=== PATIENT | male | born 1935 | race Caucasian/White ===

== ENCOUNTER 2016-10-12 11:27 | Emergency (ER) | payer OTHER ==
[~2016-10-12] VITALS: Ht 177.8 cm; Wt 72.6 kg
[2016-10-12] MEDS ORDERED: NORVASC5 MG PO (11:43)
[2016-10-12] MEDS ORDERED: OMEPRAZOLE20 M2 PO (11:44)
[2016-10-12] MEDS ORDERED: LISINOPRIL5 MG PO (11:44)
[2016-10-12] MEDS ORDERED: LEVOTHYROXIN0.025 MG PO (11:44)
[2016-10-12] MEDS ORDERED: POLY-IRON150 MG PO (11:44)
[2016-10-12] MEDS ORDERED: LOPERAMIDE 2 MG2 M1 PO (11:45)
[2016-10-12] MEDS ORDERED: APAP500 PO (11:45)
[2016-10-12 15:01] VITALS: BP 122/73
== END 2016-10-12 15:03 | disposition home or self-care (01) ==
LOC: ER 11:27
DX: S01.81XA Laceration without foreign body of other part of head, initial encounter (principal); S09.8XXA Other specified injuries of head, initial encounter; S60.512A Abrasion of left hand, initial encounter; W01.198A Fall on same level from slipping, tripping and stumbling with subsequent striking against other object, initial encounter; Y93.89 Activity, other specified; Y92.89 Other specified places as the place of occurrence of the external cause; Y99.8 Other external cause status

== ENCOUNTER 2017-07-07 14:50 | Emergency (ER) | payer OTHER ==
[~2017-07-07] VITALS: Ht 177.8 cm; Wt 68.0 kg
--- NOTE | ~2017-07-07 | EKG ---
[facility] [place] [address] ELECTROCARDIOGRAM REPORT Name: SEDRICK GARVEY [id number] Admission: 07/07/17 Attend Phys: Discharge: Date of : 35 Report #: [id number] THIS REPORT FOR: //name// [facility] ED Test Date: 2017-07-07 Test Time: 15:06:28 Pat Name: SEDRICK GARVEY Department: Room: Gender: Python Consultant: anna : 1935 Requested By: Heather uH Order Number: [id number] MD: Henok Barber Measurements Intervals [place] Rate: 69 P: FL: QRS: 20 QRSD: 80 T: 45 QT: 391 QTc: 419 Interpretive Statements Sinus rhythm with full FL interval Low voltage, extremity leads Compared to ECG 04/29/2017 12:28:29 No significant change was found Electronically Signed On 07-07-2017 17:20:53 SENIOR CORPORATE ACCOUNTANT by Henok Barber [email or web address] <ELECTRONICALLY SIGNED> By: Henok Barber MD, [facility] 07/07/17 1720 1506 1506 Henok Barber MD, FACC /EPI
[~2017-07-07 14:50] MED LIST: ACETAMINOPHEN500 M1 PO; APAP500 PO; LEVOTHYROXIN0.025 MG PO; LISINOPRIL5 MG PO; LOPERAMIDE 2 MG2 M1 PO; METAMUCIL1 EAC1 PO; NORVASC5 MG PO; OMEPRAZOLE20 M2 PO; POLY-IRON150 MG PO; TRAMADOL 50 MG50 MG PO; TUMS PO
[2017-07-07 15:19] LABS: ABSOLUTE NEUTROPHILS 6.5 thou/uL (1.4-8.2); BASOPHILS 0.8 % (0.0-2.0); EOSINOPHILS 0.7 % (0.0-3.0); HEMATOCRIT 34.5 % (42.0-52.0); HEMOGLOBIN 11.5 gm/dL (14.0-18.0); LYMPHOCYTES 16.1 % (24.0-44.0); MCH 29.3 pg (26.0-34.0); MCHC 33.3 g/dL (28.0-37.0); MCV 87.9 fL (80.0-100.0); MONOCYTES 7.9 % (1.0-8.0); PLATELET COUNT 364 thou/uL (150-400); POLYS 74.5 % (36.0-66.0); RBC 3.93 mil/uL (4.50-6.00); RDW 14.4 % (10.5-14.5); WBC 8.7 thou/uL (4.0-11.0)
[2017-07-07 15:26] LABS: ANION GAP 7 mmol/L (7-16); BUN 25 mg/dL (7-18); CALCIUM 8.5 mg/dL (8.5-10.1); CHLORIDE 104 mmol/L (98-107); CO2 27 mmol/L (21-32); CREATININE 1.4 mg/dL (0.7-1.3); GLUCOSE 90 mg/dL (74-106); POTASSIUM 4.3 mmol/L (3.5-5.1); SODIUM 138 mmol/L (136-145)
[2017-07-07 15:35] LABS: TROPONIN-I < 0.04 ng/mL (<0.06)
[2017-07-07] MEDS ORDERED: ULTRAM 50MG TAB50 MG PO (16:36)
[2017-07-07] MEDS ORDERED: LIDOCAINE1 EACH TRANSDERM (16:36)
[2017-07-07 17:39] VITALS: BP 125/71
[2018-01-19] MEDS ORDERED: LASIX 40 MG TAB40 M2 PO (13:09)
[2018-01-19] MEDS ORDERED: REMERON15 MG PO (13:11)
[2018-01-19] MEDS ORDERED: POTASSIUM20 PO (13:11)
[2018-01-23] MEDS ORDERED: K-DUR 20 MEQ T20 MEQ PO (13:04)
[2018-01-23] MEDS ORDERED: MILK OF MA2400 MG/10 PO (13:04)
[2018-01-30] MEDS ORDERED: SYNTHROID25 MC1 PO (18:12)
[2018-01-30] MEDS ORDERED: TYLENOL EXTRA500 MG PO (18:12)
[2018-01-30] MEDS ORDERED: REMERON15 MG PO (18:12)
[2018-01-30] MEDS ORDERED: IRON325 PO (18:12)
[2018-01-30] MEDS ORDERED: PROTONIX40 M1 PO (18:13)
[2018-02-01] MEDS ORDERED: AUGMENTIN 875-1 EACH PO (11:45)
== END 2017-07-07 17:30 ==
LOC: ER 14:50
PROVIDERS: Emergency Medicine
DX: S22.32XA Fracture of one rib, left side, initial encounter for closed fracture (principal); E03.9 Hypothyroidism, unspecified; I10 Essential (primary) hypertension; F03.90 Unspecified dementia, unspecified severity, without behavioral disturbance, psychotic disturbance, mood disturbance, and anxiety; W10.9XXA Fall (on) (from) unspecified stairs and steps, initial encounter; Y93.89 Activity, other specified; Y92.89 Other specified places as the place of occurrence of the external cause; Y99.8 Other external cause status

== ENCOUNTER 2018-02-20 12:40 | Inpatient (IN) | payer OTHER ==
[~2018-02-20] VITALS: Ht 177.8 cm; Wt 65.8 kg
--- NOTE | ~2018-02-20 | H ---
[facility] [place] [address] HISTORY AND PHYSICAL Name: SEDRICK GARVEY Joanne Room #: 419-P ADM IN M.R.#: [id number] Admission: 02/20/18 Attend Phys: Patrick Davison MD Discharge: Date of : 35 Report #: [id number] THIS REPORT FOR: //name// CC: Patrick Davison DATE OF SERVICE: 02/20/2018 CHIEF COMPLAINT: Abdominal pain. HISTORY OF PRESENT ILLNESS: The patient is an 82-year-old white male from [facility] who is very demented and is a completely unreliable historian. He told the staff that he had had 2 days of dark red stools. When I spoke with the patient's firm administrator at that facility, she only knew of him having generalized malaise and upon direct questioning, admitted that he was having abdominal pain today. At that point, because I would not be able to go and see him quickly, I decided he should be seen in the Emergency Room and evaluated quickly. ER evaluation suggested that on CT scan of the abdomen and pelvis, there was evidence of possible luminal narrowing and possible colitis in the rectosigmoid area. Given the patient's recent hospitalization for ischemic colitis, which was subsequently relieved with surgical adhesiolysis by Dr. Dee, and also subsequent to that, the patient developed oropharyngeal dysphagia and had right lower lobe pneumonia. It was felt that the patient is high risk for recurrent colitis with the possible cause being Clostridium difficile or other infection or ischemia. PAST MEDICAL HISTORY: In addition to the patient's recent hospitalization for ischemic colitis, he is also found to have gastroesophageal reflux disease with dysplastic changes on EGD. He has a history of prostate cancer. History of hypothyroidism, history of hypertension, history of dementia, history of blood loss anemia with iron deficiency, history of anxiety and depression. ALLERGIES: He has no known drug allergies. MEDICATIONS: He is on the following medications at [facility], ferrous sulfate, pantoprazole, acetaminophen, mirtazapine, levothyroxine and just recently finished a course of Augmentin 875/125. 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 He is a nonsmoker, nondrinker. In fact, he is quite gregarious and had to be moved from a second floor apartment down to the first floor at [facility] because of concerns for his safety after he climbed out on the ledge to inspect the roof. He has also had several falls in the last couple of years that occurred while he was out running for exercise. He had to be escorted to the Emergency Room by the police and then was eventually returned to [facility]. Recently, he has been at a residential care facility at [facility] and only came back to [facility] this very week on Friday. [address] [address] HISTORY AND PHYSICAL Name: SEDRICK GARVEY Joanne Room #: 419-P [facility] IN ..#: [id number] Admission: 02/20/18 Attend Phys: Patrick Davison MD Discharge: Date of : 35 Report #: [id number] It is noteworthy that he was on a thickened liquid diet and had a swallowing study recently and was still showing significant oropharyngeal dysphagia. REVIEW OF SYSTEMS: The patient denies any headaches or vision changes or difficulty swallowing. He denies any loss of hearing. He denies any recent trauma or falls. He denies any chest pain or shortness of breath. He denies back pain or neck pain. He denies any problems with bladder control. He does admit to having had some diarrhea recently. He does not admit to bleeding at this time, although he claimed that he had been bleeding for 2 days earlier when seen in the Emergency Room. He denies any abdominal pain at the time of my examination. He denies any problems with leg swelling or leg weakness or pain. PHYSICAL EXAMINATION: VITAL SIGNS: In the Emergency Room showed a pulse oximetry of 99% on room air with a respiratory rate of 16, pulse of 67, blood pressure 147/78 with a temperature of 36.6 degrees centigrade and a recorded weight of 145 pounds. GENERAL: The patient is a very aggressive personality octogenarian. SKIN: Shows that the patient has significant pallor today. He is usually quite pink and healthy looking prior to his last hospitalization. HEENT: Extraocular muscles are intact. The oropharynx is dry and pink. There are no lesions or exudates. Sinuses nontender. Hearing grossly normal. NECK: Without adenopathy or thyromegaly or mass or significant bruit. Skin is not supple. LUNGS: Fairly clear bilaterally. CARDIOVASCULAR: Reveals a regular rhythm without significant murmur, gallop or rub. ABDOMEN: Completely soft. Bowel sounds are present throughout. No visceromegaly or masses. EXTREMITIES: Without cyanosis or clubbing or peripheral edema. Peripheral pulses easily palpated in all 4 distal extremities. He moves them all with great ease and has excellent canal superintendent strength when shaking one hand. RECTAL: Exam was done in the Emergency Room that shows that the stool was heme positive. NEUROLOGIC: The patient is alert. He is oriented to person, but not place or time. No overt hallucinations or delusions. He is not agitated at the time of my visit and has not been during his stay in the Emergency Room or on transfer to the floor. He does have an IV in and telemetry monitoring on right now and appears to be comfortable with those interventions ongoing without pulling at them. LABORATORY DATA: On the admit labs, his white blood cell count was 7000, hemoglobin 9.4, hematocrit 27.7, MCV of 87.2 and normocytic, RDW 14.8, which is slightly elevated consistent with anemia and they are reactive nature of the bone marrow. The platelet count is 276,000 and normal also. His differential looks fairly normal. His urinalysis shows a specific gravity of greater than 1.030 with a concentrated urine. There was trace blood, but the rest of the [facility] [address] [place] [address] HISTORY AND PHYSICAL Name: MARELILIANALIN Room #: 419-P ADM IN [facility]#: [id number] Admission: 02/20/18 Attend Phys: Patrick Davison MD Discharge: Date of : 35 Report #: [id number] evaluation was otherwise completely negative. Occult blood testing of stool was positive. The chemistry showed a sodium of 142, potassium 3.7, chloride 107, bicarbonate of 27, BUN 15, creatinine 1.3. The anion gap was 8. The GFR was 53, estimated and the glucose was 105, nonfasting. Calcium level was 8.8 with a troponin of less than 0.06, and NT-proBNP was 207 and normal. An EKG was done in the Emergency Room that showed a sinus rhythm with PACs. No acute ischemic changes and essentially unchanged from one he had on 01/28/2018. Chest x-ray done in the Emergency Room shows an improved study as compared to his last one where he had the right lower lobe infiltrate towards the end of his last hospitalization last month. They did get a CT scan of his head without contrast in the ER and showed no acute abnormalities, only chronic age-related changes. After I discussed the matter with the ER staff, CT abdomen and pelvis was obtained and this impression is as follows, "CT studies of the abdomen and pelvis demonstrate mild thickening of the distal sigmoid colon and rectum. Consider distal colitis." No discrete tumors identified, but this could be a diagnosis of exclusion. These areas would be easy to reach if sigmoidoscopy is needed. Moderate sized hiatal hernia. ASSESSMENT AND PLAN: 1. Nonspecific generalized abdominal pain and diarrhea -- given the patient's recent hospital stay, several things certainly come to mind. Ischemic colitis with mild out of the realm of possibility, although the adhesions that cause this would appear to have been eliminated from last surgery. Another consideration is Clostridium difficile colitis because of his antibiotic treatments in recent weeks for his previous colitis and his pneumonia. It is my clinical impression that this patient I have known for the last couple of years is quite stoic and does not reveal discomfort reliably when asked about it. Part of this is also due to his underlying dementia. In any case, he certainly needs close observation for the next couple of days to make sure that he is not developing a more severe clinical situation. We will test his stools for Clostridium difficile and other enteric pathogens and start him on therapy for presumed C. diff and keep him on isolation. 2. Dehydration -- I suspect this explains the patient's pallor and concentrated urine on urinalysis. I think IV fluids will be quite appropriate in helping to elucidate his clinical problems. We will recheck hemoglobin and chemistry in the morning and check liver functions done as well. 3. Anemia, probably multifactorial due to iron deficiency and continuing inflammation. We will be reassessing tomorrow as above. 4. History of prostate cancer, stable. 5. Recent diagnosis of oropharyngeal dysphagia and recent episode of right lower lobe pneumonia. We will liberalize diet for now if he is doing well in that regard. We will consider speech therapy evaluation while he is in the hospital, especially if he shows any signs of continuing dysphagia issues. I [facility] [address] [place] [address] HISTORY AND PHYSICAL Name: SEDRICK GAREVY Room #: 419-P ADM IN M.R.#: [id number] Admission: 02/20/18 Attend Phys: Patrick Davison MD Discharge: Date of : 35 Report #: [id number] suspect that problem is/was temporary. 6. Hypertension. <ELECTRONICALLY SIGNED> By: Patrick Davison MD 02/22/18 0556 [id number] 53 Patrick Davison MD /nt
--- NOTE | ~2018-02-20 | HC ---
[facility] [place] [address] CONSULTATION Name: SEDRICK GARVEY Joanne Room #: 419-P [facility] IN ..#: [id number] Admission: 02/20/18 Attend Phys: Patrick Davison MD Discharge: Date of : 35 Report #: [id number] THIS REPORT FOR: //name// CC: Patrick Davison MD REASON FOR CONSULTATION: The patient is an 82-year-old male with rectal bleeding. HISTORY OF PRESENT ILLNESS: This patient is known to our service from consultation and evaluation in January of this year. At that time, he had abdominal pain and also evidence of blood in his stool with Hemoccult positive stool. He underwent surgery by Dr. Moisés Dee for lysis of adhesions related to small-bowel obstruction. He also had an upper endoscopy and he was found to have esophageal ulcers, which were thought to be the source of his bleeding. The patient unfortunately has a history of significant dementia and lives in a nursing facility. He was sent to the Emergency Room because he had dark red stool starting 2 days ago. From what I understand from nursing staff, he has not had any diarrhea. The patient is markedly demented and unable to provide any accurate information whatsoever. The patient has had laboratory studies, which include a hemoglobin of 9.2. It is noted that his hemoglobin in early January was 15.5 prior to his surgery. It looks like his hemoglobin was 8.6 just prior to his discharge. White count is 7.2, platelet count of 277,000. Electrolytes notable for potassium of 3.3, otherwise unremarkable. Calcium 7.9. Iron saturation is low. He has low iron of 18 and TIBC of low at 22. His ferritin is 48. Liver function studies are unremarkable. Albumin of 2.6. He did have a CT scan of the abdomen and pelvis, which reveals mild thickening of the distal sigmoid colon, there was a question of colitis. There is no evidence of small-bowel obstruction. He does have a large hiatus hernia, which has been noted. PAST MEDICAL HISTORY: Mostly obtained from review of the medical record. He has had previous colon surgery, looks like he has an ileocolonic anastomosis on CT. However, the purpose of that surgery is not clear. He has high blood pressure, dementia and hypothyroidism. He had a recent small-bowel obstruction secondary to adhesions. According Dr. Davison note, he had had previous ischemic colitis. He has also had trouble with anxiety and depression. ALLERGIES: According to his family doctors, there are no known drug allergies. CURRENT MEDICATIONS: At the nursing facility, he was on iron sulfate, pantoprazole, acetaminophen, mirtazapine, levothyroxine and recently finished a course of Augmentin 875/125. FAMILY HISTORY: Unknown. 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 Was a nonsmoker, nondrinker. Apparently, he restrains from his family, has not had contact with family for at least 6 months. REVIEW OF SYSTEMS: The patient is cooperative and pleasant, but denies any problems at this time. REVIEW OF SYSTEMS: Unreliable at this time. PHYSICAL EXAMINATION: GENERAL: The patient is a well-developed, well-nourished male in no acute distress. He is awake. He is alert, but he is not oriented to place or time. VITAL SIGNS: Blood pressure 136/77, pulse rate 65. HEENT: Anicteric. Pupils equal, round. Oropharynx clear. NECK: Supple. CHEST: Clear. HEART: Regular rate and rhythm, normal S1 and S2. ABDOMEN: Normal bowel sounds, soft, nontender, without hepatosplenomegaly or masses. RECTAL: Not done at this time. Stool reported Hemoccult positive for red bloody stools recently. EXTREMITIES: Without cyanosis, clubbing, or edema. NEUROLOGIC: He is not fully oriented. He moves all 4 extremities well. ASSESSMENT: 1. Rectal bleeding. 2. History of ischemic colitis. 3. History of prior colon surgery, reason unknown. 4. Recent small-bowel obstruction, status post surgery. 5. High blood pressure. 6. Advanced dementia. 7. Anemia. 8. History of prostate cancer. 9. Dysphagia. 10. Recent pneumonia. COMMENT: In addition to above, Dr. Davison reports in his note that the patient apparently had some diarrhea and abdominal pain recently. He has not had diarrhea here and he has no complaints of abdominal pain at this time. RECOMMENDATIONS: 1. Await stool for C. diff toxin, which has been requested. 2. Consider flexible sigmoidoscopy or colonoscopy to further evaluate his rectal bleeding and abnormalities noted on the CT with thickening of the distal colon and possibly some narrowing. It is noted this was not reported on CT [facility] [address] [place] [address] CONSULTATION Name: MARE,GILBERT O Room #: 419-P [facility] IN [facility].#: [id number] Admission: 02/20/18 Attend Phys: Patrick Davison MD Discharge: Date of : 35 Report #: [id number] scans done in January. We may be limited what we can do by the patient's cooperation in view of his significant dementia. He has benign abdomen at this time. He does not appear to be briskly bleeding at this time. <ELECTRONICALLY SIGNED> By: Natan Burgos MD 02/22/18 1425 1131 1701 Natan Burgos MD /nt
--- NOTE | ~2018-02-20 | P ---
[facility] [place] [address] PROCEDURE REPORT Name: SEDRICK GARVEY Joanne Room #: 419-P [facility] IN .R.#: [id number] Admission: 02/20/18 Attend Phys: Patrick Davison MD Discharge: Date of : 35 Report #: [id number] THIS REPORT FOR: //name// CC: Patrick Davison MD DATE OF SERVICE: 02/23/2018 PROCEDURE PERFORMED: Flexible sigmoidoscopy with biopsies. HISTORY OF PRESENT ILLNESS: The patient is an 82-year-old male who was admitted on 02/21/2018 for diarrhea, abdominal pain and rectal bleeding. CT scan of the abdomen and pelvis on admission shows a thickening in the distal colon, possibly some narrowing. The patient had a recent hospitalization for small-bowel obstruction, status post surgery as well as an upper GI bleed and at that time, large esophageal ulcers were noted. Recent CBC on February 20 with WBC of 7.2, hemoglobin 9.2 and platelet count is 277. The patient is demented and unable to give history or consent. Plan is for flexible sigmoidoscopy. DESCRIPTION OF PROCEDURE: The patient was performed under an emergent need as the patient is not able to give consent and there are no other family members available. Sedation was given using propofol per Anesthesia. Next, a digital rectal exam was initially performed, which was normal. Next, using a standard Olympus colonoscope, the scope was placed in the patient's anus and advanced under direct vision. I was able to advance the scope easily to the right colon, at which point, surgical anastomosis was noted. This was well healed and widely patent. There was a moderate amount of stool throughout the colon, but I was able to wash and aspirate most areas, were well visualized. The remaining transverse colon was normal. The descending colon was normal. In the distal sigmoid colon, a mild patchy colitis was noted. This was more prominent in the rectum and in the distal rectum, several small ulcerations consistent with [id number]-si-hdnyvymq colitis was noted in the distal rectum. Several biopsies were obtained. There was no evidence of bleeding. On retroflexion, no abnormalities other than small internal hemorrhoids were noted. No evidence of bleeding. At this point, the scope was then withdrawn and the procedure terminated. The patient tolerated the procedure well. IMPRESSION: Colitis noted in the distal sigmoid colon and rectum, mild in the distal sigmoid colon, somewhat more prominent in the rectum but no evidence of bleeding. Biopsies were obtained to rule out the possibility of Clostridium difficile as well as inflammatory bowel disease or other etiologies. A stool sample was also sent today for cultures and Clostridium difficile. RECOMMENDATIONS: Observe the patient at this time, there is no evidence of bleeding. Resume current diet and await for biopsies and stool studies. [address] [address] PROCEDURE REPORT Name: SEDRICK GARVEY Room #: 419-P [facility] IN M.R.#: [id number] Admission: 02/20/18 Attend Phys: Patrick Davison MD Discharge: Date of : 35 Report #: [id number] Thank you for allowing me to participate in his care. <ELECTRONICALLY SIGNED> By: Rickey Fountain MD 02/23/18 1229 1140 1153 Rickey Fountain MD /nt
--- NOTE | ~2018-02-20 | D ---
[facility] [place] [address] DISCHARGE SUMMARY Name: SEDRICK GARVEY Joanne Room #: 419-P [facility] IN M.R.#: [id number] Admission: 02/20/18 Attend Phys: Patrick Davison MD Discharge: 02/25/18 Date of : 35 Report #: [id number] THIS REPORT FOR: //name// CC: Rickey Davison [facility] DATE OF SERVICE: 02/25/2018 HOSPITAL COURSE: The patient is an 82-year-old male who presented with severe diarrhea and reports of bleeding. The only evidence of bleeding ever found was heme positive stool. No actual physical bleeding was ever visualized during this hospital stay or before. The patient, however, has moderately severe dementia and is a poor historian at best. His initial workup included CT of the abdomen and pelvis, which showed an area of wall thickening in the distal descending and rectosigmoid colon areas. GI consult was obtained with Dr. Natan Burgos and Dr. Rickey Fountain and ultimately, the patient underwent flexible sigmoidoscopy, which revealed areas of patchy colitis corresponding with the CT findings. There was no evidence of obstruction. The endoscopy went all the way back as far as the anastomotic site of his previous right hemicolectomy. There was no other evidence of pathology. The patient's hospital stay was remarkable in that he stopped having diarrhea when he arrived and stool studies eventually had to be obtained from the endoscopy specimen to test for C. diff as he was not having loose stools subsequently. The final results of stool cultures and such were pending at time of this dictation. During his last hospital stay just prior to this, the patient was also found to have significant oropharyngeal dysphagia and evidence of aspiration pneumonitis. It had resolved, but I think recurred again during this hospital stay as the patient would go from one day looking much better to the next day looking much worse without much time in between. In fact, corresponding to that one day that he began looked very bad, his white count suddenly jumped up to 17,000 again, but was back down around 9000 the next day, without antibiotics or any other significant intervention. The patient is aware that sometimes he has difficulties when he is swallowing and feels as though he aspirates or has to swallow several times to clear his throat. He is now on a soft mechanical diet with nectar thickened liquids and I did discuss the dietary change with the chapter relations administrator at his residential care facility, so that he can continue on it after he goes there. I also recommended and put orders in for speech as well as physical and occupational therapy to continue after discharge, so the patient can return to his usual level of function, otherwise. [address] [address] DISCHARGE SUMMARY Name: SEDRICK GARVEY Room #: 419-P [facility] IN M.R.#: [id number] Admission: 02/20/18 Attend Phys: Patrick Davison MD Discharge: 02/25/18 Date of : 35 Report #: [id number] DISCHARGE MEDICATIONS: As follows: Acetaminophen 500 mg p.o. q.4h. p.r.n. pain or temperature of 100, ferrous sulfate 325 mg by mouth p.o. b.i.d. with meals, levothyroxine 25 mcg p.o. daily, mirtazapine 15 mg p.o. nightly, pantoprazole 40 mg p.o. b.i.d.* Potassium chloride 20 mEq p.o. daily. * - the patient did have an upper endoscopy recently and this showed he had some reflux esophagitis and this area was biopsied and confirmed the diagnosis of Waddell's esophagus with some mild dysplastic changes noted. He will need to have followup evaluations of his distal esophagus every 2-3 years at least. He will need to continue on proton pump inhibitor therapy indefinitely. DISCHARGE DIAGNOSES: 1. Aspiration pneumonitis. 2. Nonspecific distal colitis with diarrhea and heme positive stools. 3. Waddell's esophagus. 4. Hypothyroidism. 5. Hypertension. 6. Mild depression. 7. Iron deficiency anemia. <ELECTRONICALLY SIGNED> By: Patrick Davison MD 02/26/18 1034 1441 1615 Patrick Davison MD /nt
--- NOTE | ~2018-02-20 | EKG ---
[address] [address] ELECTROCARDIOGRAM REPORT Name: SEDRICK GARVEY Room #: 419-P [facility] IN .R.#: [id number] Admission: 02/20/18 Attend Phys: Patrick Davison MD Discharge: 02/25/18 Date of : 35 Report #: [id number] THIS REPORT FOR: //name// [facility] ED Test Date: 2018-02-20 Test Time: 13:34:27 Pat Name: SEDRICK GARVEY Department: Room: [facility] Gender: M Argon [facility] 1935 Requested By: Hadley Aguilar Order Number: [id number] MD: Yon Maurer Measurements Intervals [place] Rate: 61 P: 41 VT: 193 QRS: -2 QRSD: 88 T: 24 QT: 412 QTc: 415 Interpretive Statements Sinus rhythm Atrial premature complexes Compared to ECG 01/28/2018 00:04:55 Atrial premature complex(es) now present Sinus tachycardia no longer present Electronically Signed On 02-27-2018 14:14:31 CDT by Yon Maurer [email or web address] <ELECTRONICALLY SIGNED> By: Yon Maurer MD 02/27/18 1414 1334 1334 Yon Maurer MD /EPI
--- NOTE | ~2018-02-20 | PATH ---
[facility] [address] [place] [address] PATHOLOGY RPT PROCEDURE Name: MARE,LILIANALIN Rubio Room #: 419-P ADM IN M.R.#: [id number] Admission: 02/20/18 Date of : 35 Discharge: Report #: [id number] Path Case #: [id number] [facility] Accession Number: [id number] . 01 Material submitted: . BX OF RECTUM . 01 Clinical history: . GI bleed, diarrhea Rule out colitis, rectal colitis . 02 Diagnosis: Large intestinal mucosa, rectum rule out colitis, endoscopic biopsy: - Ulceration, reactive crypts and features of active proctitis (please see comment). [facility]/02/25/2018 . 02 Comment: Examination shows a markedly cellular lamina propria along with ulceration, acute cryptitis, reactive as well as hyperplastic crypts in addition to subtle architectural abnormalities. Overall findings are suggestive of active colitis within the rectum. The differential diagnosis for this includes active inflammatory bowel disease, solitary rectal ulcer, ischemic changes, mucosal prolapse syndrome as well as acute diverticulitis in addition to medication induced proctitis. There is no dysplasia or malignancy present. Please correlate clinically. (IUV:pit 02/25/2018) . 02 Electronically signed: . Brittney Logan MD, Pathologist NPI- [id number] . 01 Gross description: . The specimen is received in formalin, labeled "Sedrick Garvey, BX rectum rule out colitis" and consists of 5 fragments of soft lam tissue measuring 1.1 x 0.6 x 0.2 cm in aggregate which are entirely submitted in A1. (SDY; 02/23/2018) SYU/SYU . 02 Pathologist provided ICD-10: K62.89, K62.6 . 02 CPT . 140838 Specimen Comment: A courtesy copy of this report has been sent to Specimen Comment: [phone], . Specimen Comment: Report sent to / [place] [address] PATHOLOGY RPT PROCEDURE Name: SEDRICK GARVEY O Room #: 419-P [facility] IN [facility].#: [id number] Admission: 02/20/18 Date of : 35 Discharge: Report #: [id number] Path Case #: [id number] Performed at: 01 [facility] Demetris Musa [address] [facility] [address], [place] [id number] MD Tomas Peterson MD Phone: [phone] Performed at: [address] [id number] MD Brittney Logan MD Phone: [phone]
[~2018-02-20 12:40] MED LIST changes: +AUGMENTIN 875-1 EACH PO; +IRON325 PO; +K-DUR 20 MEQ T20 MEQ PO; +LASIX 40 MG TAB40 M2 PO; +LIDOCAINE1 EACH TRANSDERM; +MILK OF MA2400 MG/10 PO; +POTASSIUM20 PO; +PROTONIX40 M1 PO; +REMERON15 MG PO; +SYNTHROID25 MC1 PO; +TYLENOL EXTRA500 MG PO; +ULTRAM 50MG TAB50 MG PO
[2018-02-20 12:41] VITALS: BP 141/78
[2018-02-20 13:39] LABS: ABSOLUTE NEUTROPHILS 4.5 thou/uL (1.4-8.2); BASOPHILS 0.7 % (0.0-2.0); EOSINOPHILS 1.1 % (0.0-3.0); HEMATOCRIT 27.7 % (42.0-52.0); HEMOGLOBIN 9.4 gm/dL (14.0-18.0); LYMPHOCYTES 22.5 % (24.0-44.0); MCH 29.5 pg (26.0-34.0); MCHC 33.9 g/dL (28.0-37.0); MCV 87.2 fL (80.0-100.0); MONOCYTES 11.3 % (1.0-8.0); PLATELET COUNT 276 thou/uL (150-400); POLYS 64.4 % (36.0-66.0); RBC 3.18 mil/uL (4.50-6.00); RDW 14.8 % (10.5-14.5)
[2018-02-20 13:51] LABS: ANION GAP 8 mmol/L (7-16); BUN 15 mg/dL (7-18); CALCIUM 8.8 mg/dL (8.5-10.1); CHLORIDE 107 mmol/L (98-107); CO2 27 mmol/L (21-32); CREATININE 1.3 mg/dL (0.7-1.3); GLUCOSE 105 mg/dL (74-106); POTASSIUM 3.7 mmol/L (3.5-5.1); SODIUM 142 mmol/L (136-145)
[2018-02-20 14:00] LABS: TROPONIN-I <0.06 ng/mL (<0.06)
[2018-02-20 14:10] LABS: URINE BILIRUBIN NEGATIVE (Negative); URINE BLOOD TRACE (Negative); URINE CLARITY CLEAR; URINE COLOR YELLOW; URINE GLUCOSE-RANDOM* NEGATIVE (Negative); URINE KETONES NEGATIVE (Negative); URINE LEUKOCYTES NEGATIVE (Negative); URINE NITRITE NEGATIVE (Negative); URINE PROTEIN (DIPSTICK) NEGATIVE (Negative); URINE SPECIFIC GRAVITY >= 1.030 (1.005-1.035); URINE UROBILINOGEN 0.2 E.U./dl (0.2-1.0)
[2018-02-20 16:17] VITALS: BP 137/63
[2018-02-20 17:03] VITALS: BP 137/63
[2018-02-20 19:21] VITALS: BP 139/68
[2018-02-20 20:30] LABS: HEMATOCRIT 27.4 % (42.0-52.0); HEMOGLOBIN 9.2 gm/dL (14.0-18.0); MCH 29.5 pg (26.0-34.0); MCHC 33.6 g/dL (28.0-37.0); MCV 87.7 fL (80.0-100.0); RBC 3.13 mil/uL (4.50-6.00); RDW 15.3 % (10.5-14.5); WBC 7.2 thou/uL (4.0-11.0)
[2018-02-20 20:43] LABS: ALBUMIN 2.6 g/dL (3.4-5.0); CALCIUM 7.9 mg/dL (8.5-10.1); CREATININE 1.1 mg/dL (0.7-1.3); POTASSIUM 3.3 mmol/L (3.5-5.1); TOTAL BILIRUBIN 0.4 mg/dL (<0.1-1.0); TOTAL PROTEIN 6.1 g/dL (6.4-8.2)
[2018-02-21 05:30] VITALS: BP 136/77
[2018-02-21 06:32] LABS: OBSERVED RETIC COUNT 1.18 % (0.6-2.6)
[2018-02-21 06:47] LABS: % SATURATION 8 % (20-39); IRON 18 ug/dL (65-175); TIBC 222 ug/dL (250-450)
[2018-02-21 19:27] VITALS: BP 157/75
[2018-02-22 06:33] LABS: CALCIUM 8.7 mg/dL (8.5-10.1); CREATININE 1.1 mg/dL (0.7-1.3); MAGNESIUM 1.8 mg/dL (1.8-2.4); POTASSIUM 3.9 mmol/L (3.5-5.1)
[2018-02-22 07:20] VITALS: BP 164/83
[2018-02-22 19:17] VITALS: BP 155/78
[2018-02-23 04:31] VITALS: BP 149/87
[2018-02-23 19:23] VITALS: BP 113/69
[2018-02-24 04:12] VITALS: BP 135/74
[2018-02-24 06:29] LABS: HEMATOCRIT 30.8 % (42.0-52.0); MCH 28.7 pg (26.0-34.0); MCHC 32.6 g/dL (28.0-37.0); RBC 3.5 mil/uL (4.50-6.00); RDW 15.1 % (10.5-14.5); WBC 17.6 thou/uL (4.0-11.0)
[2018-02-24 06:45] LABS: ALBUMIN 2.8 g/dL (3.4-5.0); CALCIUM 8.7 mg/dL (8.5-10.1); CREATININE 1.3 mg/dL (0.7-1.3); POTASSIUM 4.4 mmol/L (3.5-5.1)
[2018-02-24 06:56] LABS: URINE BILIRUBIN NEGATIVE (Negative); URINE BLOOD 1+ (Negative); URINE CLARITY CLEAR; URINE COLOR YELLOW; URINE GLUCOSE-RANDOM* NEGATIVE (Negative); URINE KETONES NEGATIVE (Negative); URINE LEUKOCYTES-REFLEX NEGATIVE (Negative); URINE NITRITE-REFLEX NEGATIVE (Negative); URINE PROTEIN (DIPSTICK) NEGATIVE (Negative); URINE SPECIFIC GRAVITY 1.015 (1.005-1.035); URINE UROBILINOGEN 0.2 E.U./dl (0.2-1.0)
[2018-02-24 07:04] LABS: CASTS None Seen /LPF (None Seen); CRYSTALS None Seen /LPF (None Seen); SQUAMOUS None Seen /LPF (0-3); URINE RBC 3-10 Few /HPF (0-2); URINE WBC-REFLEX 0-5 Rare /HPF (0-5)
[2018-02-24 07:05] LABS: BACTERIA-REFLEX 1-9 Few /HPF (None Seen)
[2018-02-24 07:20] VITALS: BP 132/68
[2018-02-24 15:50] VITALS: BP 120/73
[2018-02-24 19:50] VITALS: BP 114/56
[2018-02-25 03:30] VITALS: BP 141/73
[2018-02-25 06:25] LABS: ABSOLUTE NEUTROPHILS 6.5 thou/uL (1.4-8.2); BASOPHILS 0.8 % (0.0-2.0); EOSINOPHILS 1.7 % (0.0-3.0); HEMATOCRIT 30.1 % (42.0-52.0); HEMOGLOBIN 10.1 gm/dL (14.0-18.0); LYMPHOCYTES 16.9 % (24.0-44.0); MCH 29.2 pg (26.0-34.0); MCHC 33.4 g/dL (28.0-37.0); MCV 87.3 fL (80.0-100.0); MONOCYTES 11.8 % (1.0-8.0); PLATELET COUNT 267 thou/uL (150-400); POLYS 68.8 % (36.0-66.0); RBC 3.45 mil/uL (4.50-6.00); RDW 14.7 % (10.5-14.5); WBC 9.4 thou/uL (4.0-11.0)
[2018-02-25 06:50] LABS: CREATININE 1.4 mg/dL (0.7-1.3); POTASSIUM 4.7 mmol/L (3.5-5.1)
[2018-02-25 07:15] VITALS: BP 154/90
[2018-02-25] MEDS ORDERED: K-DUR 20 MEQ T20 MEQ PO (14:08)
[2018-02-25] MEDS ORDERED: REMERON15 MG PO (14:08)
[2018-02-25] MEDS ORDERED: ONDANSETRON HCL4 M1 PO (14:09)
[2018-02-25 14:47] VITALS: BP 154/90
[2018-02-25 14:49] VITALS: BP 154/90
[2018-02-25 15:02] VITALS: BP 143/82
== END 2018-02-25 15:16 | disposition home health service (06) | DRG 377 ==
LOC: ER 12:40 → EROBS 15:58 → 4E 15:58
PROVIDERS: Internal Medicine; Nurse Practitioner
PROC: 0DBP8ZX Excision of Rectum, Via Natural or Artificial Opening Endoscopic, Diagnostic (ICD-10-PCS; principal; 2018-02-23)
DX: K62.5 Hemorrhage of anus and rectum (principal); J69.0 Pneumonitis due to inhalation of food and vomit; E46 Unspecified protein-calorie malnutrition; E44.0 Moderate protein-calorie malnutrition; K52.9 Noninfective gastroenteritis and colitis, unspecified; K22.70 Barrett's esophagus without dysplasia; E03.9 Hypothyroidism, unspecified; I10 Essential (primary) hypertension; F03.90 Unspecified dementia, unspecified severity, without behavioral disturbance, psychotic disturbance, mood disturbance, and anxiety; F41.9 Anxiety disorder, unspecified; F32.9 Major depressive disorder, single episode, unspecified; R13.10 Dysphagia, unspecified; D50.9 Iron deficiency anemia, unspecified; K21.9 Gastro-esophageal reflux disease without esophagitis; E86.0 Dehydration; E87.6 Hypokalemia; Z85.46 Personal history of malignant neoplasm of prostate; Z68.20 Body mass index [BMI] 20.0-20.9, adult; Z79.899 Other long term (current) drug therapy
CPT/HCPCS: 10084; 62110; 62900; 70005

== ENCOUNTER 2018-08-28 09:00 | Emergency (ER) | payer OTHER ==
[~2018-08-28] VITALS: Ht 185.4 cm; Wt 79.4 kg
[~2018-08-28 09:00] MED LIST changes: +ONDANSETRON HCL4 M1 PO
[2018-08-28] MEDS ORDERED: AMLODIPINE-OLM1 EAC2 PO (09:15)
[2018-08-28 09:43] LABS: HEMATOCRIT 37.3 % (42.0-52.0); HEMOGLOBIN 12.7 gm/dL (14.0-18.0); MCH 30.2 pg (26.0-34.0); MCV 88.8 fL (80.0-100.0); PLATELET COUNT 232 thou/uL (150-400); WBC 9.1 thou/uL (4.0-11.0)
[2018-08-28 09:53] LABS: CREATININE 1.4 mg/dL (0.7-1.3)
[2018-08-28 09:59] LABS: ALBUMIN 3.3 g/dL (3.4-5.0); TOTAL BILIRUBIN 0.3 mg/dL (<0.1-1.0); TOTAL PROTEIN 7.2 g/dL (6.4-8.2)
[2018-08-28 10:03] LABS: URINE BILIRUBIN NEGATIVE (Negative); URINE BLOOD 2+ (Negative); URINE CLARITY CLEAR; URINE COLOR YELLOW; URINE GLUCOSE-RANDOM* NEGATIVE (Negative); URINE KETONES NEGATIVE (Negative); URINE LEUKOCYTES-REFLEX NEGATIVE (Negative); URINE NITRITE-REFLEX NEGATIVE (Negative); URINE PROTEIN (DIPSTICK) NEGATIVE (Negative); URINE SPECIFIC GRAVITY >= 1.030 (1.005-1.035); URINE UROBILINOGEN 0.2 E.U./dl (0.2-1.0)
[2018-08-28 10:13] LABS: CASTS None Seen /LPF (None Seen); MUCUS 0-3 Light strn/LPF (None Seen); SQUAMOUS 0-3 Few /LPF (0-3)
[2018-08-28 10:14] LABS: BACTERIA-REFLEX None Seen /HPF (None Seen); CRYSTALS None Seen /LPF (None Seen); URINE RBC 0-2 Rare /HPF (0-2); URINE WBC-REFLEX 0-5 Rare /HPF (0-5)
[2018-08-28] MEDS ORDERED: OSELB75 PO (10:22)
[2018-08-28 11:02] VITALS: BP 109/56
[2018-08-28 11:12] LABS: ABSOLUTE NEUTROPHILS 7.5 thou/uL (1.4-8.2); ANISOCYTOSIS SLIGHT; ATYPICAL LYMPHS 1 %; LARGE PLATELETS OCCASIONAL; OVALOCYTES OCCASIONAL; POIKILOCYTOSIS SLIGHT
[2018-08-29] MEDS ORDERED: ACETAMINOPHEN325 M1 PO (09:31)
== END 2018-08-28 11:04 | disposition home or self-care (01) ==
LOC: ER 09:00
PROVIDERS: Emergency Medicine
DX: J10.1 Influenza due to other identified influenza virus with other respiratory manifestations (principal); F03.90 Unspecified dementia, unspecified severity, without behavioral disturbance, psychotic disturbance, mood disturbance, and anxiety; I10 Essential (primary) hypertension; E03.9 Hypothyroidism, unspecified

== ENCOUNTER 2018-08-28 21:35 | Inpatient (IN) | payer OTHER ==
[~2018-08-28] VITALS: Ht 182.9 cm; Wt 70.8 kg
[~2018-08-28 21:35] MED LIST changes: +AMLODIPINE-OLM1 EAC2 PO; +OSELB75 PO
[2018-08-28 21:37] VITALS: BP 146/74
[2018-08-28 22:29] VITALS: BP 146/74
[2018-08-28 22:56] VITALS: BP 122/60
[2018-08-28 23:20] VITALS: BP 129/62
--- NOTE | 2018-08-28 23:39 | NUR ---
BLOOD AND CULTURES DRAWN AT EARLIER VISIT
--- NOTE | 2018-08-29 02:06 | NUR ---
PT ARRIVED AT 2320 PT ORIENTATED TO ROOM AND CALL LIGHT PT DID NOT TRY TO GET UP UNASSISTED PT CONFUSED AND NOT ABLE TO PROVIDE MUCH INFO FOR HEALTH ASSESMENT.
[2018-08-29 04:03] VITALS: BP 125/64
[2018-08-29 07:34] VITALS: BP 134/82
[2018-08-29] MEDS ORDERED: ACETAMINOPHEN325 M1 PO (09:31)
[2018-08-29 10:15] VITALS: BP 134/82
--- NOTE | 2018-08-29 12:10 | NUR ---
pt stable throughout shift. pt discharged back to [facility]. attempted to call report, however facility ([facility]) requested I "just send it with patient". pt left unit via wheelchair van.
--- NOTE | 2018-08-31 20:05 | D ---
[facility] [place] [address] DISCHARGE SUMMARY Name: SEDRICK GARVEY Joanne Room #: 463-P [facility] IN .R.#: [id number] Admission: 08/28/18 ������������������ Attend Phys: Patrick Davison MD Discharge: 08/29/18 ������������������ Date of : 35 Report #: [id number] THIS REPORT FOR: //name// CC: Patrick Davison [facility] DATE OF SERVICE: 08/29/2018 SHORT STAY SUMMARY HOSPITAL COURSE: The patient is an 82-year-old male who resides at [facility] and was brought to the Emergency Room early in the day on 08/28/2018 after having an episode of weakness. He was diagnosed with influenza A, started on Tamiflu and sent back to the facility. I received a call from the [employer] administrator of the facility saying that they did not have staff to take care of this elderly sick man who was unable to even leave his room to go to meals. I had him sent back to the Emergency Room, where he was evaluated in the evening of the same day by Dr. Heather Hu. His vital signs at the time of this admission were pulse of 104, temperature of 38.3 degrees centigrade, blood pressure 146/74, pulse oximetry of 96% and respiratory rate of 21 on room air with a weight reported at 156 pounds. He was admitted with influenza and dehydration as the main problems, in the setting of hypertension, dementia, hypothyroidism, prior history of colitis and prior history of right hemicolectomy. ALLERGIES: He has no known drug allergies. MEDICATIONS: At the time of admission include Tamiflu, ferrous sulfate, pantoprazole, mirtazapine, potassium chloride, levothyroxine and amlodipine. 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 He is , I believe. He lives in a residential care facility at [facility]. PHYSICAL EXAMINATION: I did attend the patient the following morning. HEENT: He has, on physical exam today, hoarseness of voice, but his oropharyngeal exam is otherwise benign. LUNGS: Fairly clear. CARDIAC EXAMINATION: Reveals a regular rhythm. ABDOMEN: Soft. Bowel sounds are present. No visceromegaly or masses. EXTREMITIES: Without cyanosis, clubbing or peripheral edema. He has good peripheral pulses throughout. NEUROLOGICAL EXAMINATION: Essentially normal for cranial nerves, cerebellar arteries, reflexes and sensory and motor exams. MENTAL STATUS: He is alert. He is oriented x 2. No hallucinations or delusions. His affect is slightly downcast, but somewhat variable. His conversation is appropriate. [address] [address] DISCHARGE SUMMARY Name: SEDRICK GARVEY Room #: 463-P [facility].#: [id number] Admission: 08/28/18 ������������������ Attend Phys: Patrick Davison MD Discharge: 08/29/18 ������������������ Date of : 35 Report #: [id number] LABORATORY DATA: His labs from yesterday revealed the following information: His white blood cell count was 9100 with a differential including 81% segs, 1% bands, 3% lymphs, 13% monocytes, 1% eosinophils and no basophils; his hemoglobin was 12.7 with hematocrit of 37.3; normal red cell indices, with a slightly elevated RDW of 15 and the platelet count was 232,000. His comprehensive metabolic panel shows sodium of 139, potassium of 4.0, chloride of 106, bicarbonate of 23, BUN of 24 and creatinine of 1.4, consistent with a history of mild chronic renal insufficiency. The anion gap was 10. The glucose was 111, nonfasting. AST of 17, ALT of 21 and total bilirubin is 0.3. Calcium is 9.0. The total protein is 7.2. Albumin is 3.3 and the estimated GFR on his chemistry is 49 mL per minute per 1.73 cubic meters. The lactic acid level was normal at 1.6 in the ER and the influenza antigens A and B were tested; B was negative, A was positive. Urinalysis showed clear yellow urine with specific gravity of greater than 1.030, consistent with dehydration. A pH of 5.5. The dipstick was 2+ positive for blood and otherwise completely negative. The microscopic was completely benign and a chest x-ray was done that showed atelectasis in the bases, but no specific infiltrates. Mild chronic interstitial changes were also noted. ASSESSMENT AND PLAN: 1. Acute influenza A - the patient has residual fever, but he is otherwise sounding and behaving as his normal self. I took him for a walk. We went 200 feet without difficulty and I think he is perfectly stable to return to [facility] today. I did call the facility and spoke with one of the aides there, Leana I think was her name, and told her that he will be coming back today. He will have no medication changes from his admit at this time and I will see him in followup when I round at [facility] monthly. In the meantime, he is recommended to hydrate aggressively and be up and out of bed as much as tolerated. 2. Dehydration. The patient received intravenous fluids overnight. He appears to be adequately hydrated this morning and had eaten about 90% of his breakfast when I visited with him. I think he will be able to maintain or replete his nutritional/hydrational losses without further intervention on my part. 3. Hypertension. We will continue current medications as his blood pressure appears to be adequately controlled here. 4. Gastroesophageal reflux disease. Continue current therapy. 5. History of depression recently. Continue mirtazapine. ��������������������������������������������� <ELECTRONICALLY SIGNED> ���������������������������������������� By: Patrick Davison MD ��������������������������������������������� 08/31/182004 0920 1102 Patrick Davison MD /nt
== END 2018-08-29 12:48 | DRG 195 ==
LOC: ER 21:35 → EROBS 22:12 → 4W 22:56
PROVIDERS: ADMIT Internal Medicine
DX: J10.1 Influenza due to other identified influenza virus with other respiratory manifestations (principal); E03.9 Hypothyroidism, unspecified; I10 Essential (primary) hypertension; E86.0 Dehydration; K21.9 Gastro-esophageal reflux disease without esophagitis; F32.9 Major depressive disorder, single episode, unspecified; F03.90 Unspecified dementia, unspecified severity, without behavioral disturbance, psychotic disturbance, mood disturbance, and anxiety; Z90.49 Acquired absence of other specified parts of digestive tract; Z79.899 Other long term (current) drug therapy
CPT/HCPCS: 10045

== ENCOUNTER 2018-12-26 07:25 | Inpatient (IN) | payer OTHER ==
[~2018-12-26] VITALS: Ht 177.8 cm; Wt 72.6 kg
[2018-12-26] VITALS (7 sets, daily range): BP systolic 116–141; BP diastolic 63–81
[~2018-12-26 07:25] MED LIST changes: +ACETAMINOPHEN325 M1 PO
[2018-12-26] MEDS ORDERED: NORVASC5 MG PO (07:37)
[2018-12-26] MEDS ORDERED: LISINOPRIL10 MG PO (07:38)
[2018-12-26 07:57] LABS: ABSOLUTE NEUTROPHILS 15.8 thou/uL (1.4-8.2); BASOPHILS 0.2 % (0.0-2.0); EOSINOPHILS 0.5 % (0.0-3.0); HEMATOCRIT 40.5 % (42.0-52.0); HEMOGLOBIN 13.5 gm/dL (14.0-18.0); LYMPHOCYTES 7.6 % (24.0-44.0); MCH 30.6 pg (26.0-34.0); MCHC 33.3 g/dL (28.0-37.0); MCV 91.7 fL (80.0-100.0); MONOCYTES 7.3 % (1.0-8.0); PLATELET COUNT 268 thou/uL (150-400); POLYS 84.4 % (36.0-66.0); RBC 4.42 mil/uL (4.50-6.00); RDW 13.5 % (10.5-14.5); WBC 18.7 thou/uL (4.0-11.0)
[2018-12-26 08:07] LABS: CALCIUM 9.1 mg/dL (8.5-10.1); CREATININE 1.4 mg/dL (0.7-1.3); POTASSIUM 4.9 mmol/L (3.5-5.1)
[2018-12-26 08:07] LABS: URINE BILIRUBIN NEGATIVE (Negative); URINE BLOOD NEGATIVE (Negative); URINE CLARITY CLEAR; URINE COLOR YELLOW; URINE GLUCOSE-RANDOM* NEGATIVE (Negative); URINE KETONES NEGATIVE (Negative); URINE LEUKOCYTES-REFLEX NEGATIVE (Negative); URINE NITRITE-REFLEX NEGATIVE (Negative); URINE PROTEIN (DIPSTICK) NEGATIVE (Negative); URINE UROBILINOGEN 0.2 E.U./dl (0.2-1.0)
[2018-12-26 08:13] LABS: ALBUMIN 3.4 g/dL (3.4-5.0); TOTAL BILIRUBIN 0.3 mg/dL (<0.1-1.0); TOTAL PROTEIN 7.5 g/dL (6.4-8.2)
--- NOTE | 2018-12-26 09:32 | NUR ---
PATIENT ADMITTED TO ROOM AT THIS TIME. HE IS ALERT ORIENTED TO SELF. HE IS NOT AWAR OF THE DAY OR WHERE HE IS . DENIES PAIN AT THIS TIME. RESPIRATIONS ARE NON LABORED. HE AMBULATES WITH SLOW BUT STEADY GAIT. WILL CONT WITH PLAN OF CARE.
[2018-12-27 02:53] VITALS: BP 133/76
--- NOTE | 2018-12-27 05:54 | NUR ---
pt has continues to have confusion this shift. He needs encouraging to use the urinal when offered. continues on iv fluids. denies pain.
[2018-12-27 06:03] LABS: ABSOLUTE NEUTROPHILS 10.3 thou/uL (1.4-8.2); BASOPHILS 0.4 % (0.0-2.0); HEMATOCRIT 38.4 % (42.0-52.0); HEMOGLOBIN 12.6 gm/dL (14.0-18.0); LYMPHOCYTES 13.2 % (24.0-44.0); MCH 29.9 pg (26.0-34.0); MCHC 32.9 g/dL (28.0-37.0); MONOCYTES 8.4 % (1.0-8.0); PLATELET COUNT 242 thou/uL (150-400); RBC 4.23 mil/uL (4.50-6.00); RDW 13.9 % (10.5-14.5); WBC 13.4 thou/uL (4.0-11.0)
[2018-12-27 06:18] LABS: CREATININE 1.2 mg/dL (0.7-1.3)
[2018-12-27 08:05] VITALS: BP 134/70
[2018-12-27 11:25] VITALS: BP 121/63
[2018-12-27 16:20] VITALS: BP 136/76
--- NOTE | 2018-12-27 16:43 | NUR ---
PATIENT HAS RESTED IN ROOM. CONT ON FLUID REPLACEMENT AND SEEMS EFFECTIVE URINE IS NOW PALE YELLOW. DR OMER HERE NO NEW ORDERS. PATIENT MAY BE DISCHARGED TO FACILITY TOMORROW.
--- NOTE | 2018-12-27 19:51 | EKG ---
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: : 1935 Requested By: Mehran Moran Order Number: [id number] MD: Yon Maurer Measurements Intervals [place] Rate: 102 P: 35 [place]: 196 QRS: 5 QRSD: 86 T: 28 QT: 326 QTc: 425 Interpretive Statements Sinus tachycardia Borderline low voltage, extremity leads Compared to ECG 02/20/2018 13:34:27 Sinus rhythm no longer present Atrial premature complex(es) no longer present Electronically Signed On 12-27-2018 19:51:01 CDT by Yon Maurer [email or web address] ��������������������������������������������� <ELECTRONICALLY SIGNED> ���������������������������������������� By: Yon Maurer MD ��������������������������������������������� 12/27/181950 7 7 Yon Maurer MD /EPI
[2018-12-27 20:19] VITALS: BP 139/82
[2018-12-28 00:14] VITALS: BP 132/80
--- NOTE | 2018-12-28 04:09 | NUR ---
patient is alert to self. patient is confused. patient is impulsive. patient is nsr on tele. patient is on room air. patient is pending dc today. plan is to rehydrate, monitor bp and send home. patient denies pain. patient is resting comfortably in bed. wcm. patient is progressing to goals. patient is sba.
[2018-12-28 05:20] VITALS: BP 130/75
[2018-12-28 07:30] VITALS: BP 135/88
[2018-12-28 07:46] LABS: HEMATOCRIT 41.1 % (42.0-52.0); HEMOGLOBIN 13.7 gm/dL (14.0-18.0); MCH 30.7 pg (26.0-34.0); MCHC 33.4 g/dL (28.0-37.0); MCV 91.7 fL (80.0-100.0); RBC 4.48 mil/uL (4.50-6.00); RDW 13.9 % (10.5-14.5); WBC 10.2 thou/uL (4.0-11.0)
[2018-12-28 08:00] LABS: ALBUMIN 3.3 g/dL (3.4-5.0); CALCIUM 9.3 mg/dL (8.5-10.1); CREATININE 1.3 mg/dL (0.7-1.3); POTASSIUM 4.1 mmol/L (3.5-5.1); TOTAL BILIRUBIN 0.3 mg/dL (<0.1-1.0); TOTAL PROTEIN 7.8 g/dL (6.4-8.2)
--- NOTE | 2018-12-28 10:21 | H ---
[facility] [place] [address] HISTORY AND PHYSICAL Name: SEDRICK GARVEY Joanne Room #: 351-P [facility] IN M.R.#: [id number] Admission: 12/26/18 ������������������ Attend Phys: Patrick Davison MD Discharge: ������������������ Date of : 35 Report #: [id number] THIS REPORT FOR: //name// CC: Patrick Davison [facility] DATE OF SERVICE: 12/26/2018 CHIEF COMPLAINT: Hypoxia. HISTORY OF PRESENT ILLNESS: The patient is a demented 83-year-old male, who resides at [facility]. Prior to his arrival in the Emergency Room, I received a call from his aide, who had performed oxygen saturation levels because he looked cyanotic and found them to be about 80%. As this is not a snf facility, I strongly recommended he be sent to the Emergency Room for further evaluation and treatment. I then received a phone call from Dr. Alvares, who stated that he was under the impression that the patient had come in because of elevated blood pressure. His workup did find pulmonary infiltrates and slightly elevated blood pressure, but no hypoxia. In any case, the patient is being admitted for further evaluation and treatment of his community-acquired pneumonia. PAST MEDICAL HISTORY: The patient has dementia, mild to moderate in severity. He has hypertension and hypothyroidism and gastroesophageal reflux disease and some osteoarthritis. He has had a number of falls in the last couple of years and had to have stitches in his forehead several times. MEDICATIONS: His medications on arrival include ferrous sulfate, pantoprazole, mirtazapine, potassium chloride, and acetaminophen. He was previously taking amlodipine and olmesartan, but did no longer need them. He is taking also amlodipine 5 mg daily and lisinopril 10 mg daily. 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 FAMILY HISTORY: Difficult to obtain as the patient's memory is quite ____. REVIEW OF SYSTEMS: He denies shortness of breath and states that he "feels fine." He states that his appetite is good and he has had no falls or trauma recently. He denies any headaches, blurry vision, changes in his ability to swallow or to small foods. He denies any hearing loss. He denies any confusion. He denies any back pain or any other joint aches or pains at this time. PHYSICAL EXAMINATION: VITAL SIGNS: In the Emergency Room show a pulse of 111 [place] [address] HISTORY AND PHYSICAL Name: SEDRICK GARVEY Room #: 351-P [facility] IN [facility]#: [id number] Admission: 12/26/18 ������������������ Attend Phys: Patrick Davison MD Discharge: ������������������ Date of : 35 Report #: [id number] temperature of 37.1 degrees centigrade, respiratory rate of 19 per minute and pulse oximetry of 97% on room air. His blood pressure was recorded at 132/81 and his admit weight was reportedly 160 pounds. GENERAL: The patient is a pleasant, hard-driving older white male, who is obviously somewhat confused at baseline. HEENT: The extraocular muscles are intact. The oropharynx is dry and pink. No lesions or exudates noted. The sinuses are nontender. Hearing is mildly diminished bilaterally. NECK: Without adenopathy or thyromegaly or mass or JVD or bruit. He does have some tenting of the skin noted. LUNGS: Fairly clear bilaterally with scattered crackles that clear with a cough. No basilar rales. No dullness detected on exam today. CARDIAC: Reveals irregular rhythm without significant murmur, gallop or rub. ABDOMEN: Soft. Bowel sounds are present. No visceromegaly or masses. EXTREMITIES: Without cyanosis or clubbing. He does have 1+ pitting in bilateral lower extremities chronically and this is unchanged from his baseline. The patient is able to walk without difficulty. NEUROLOGIC: His mental status shows that he is alert. He is oriented to person, but not place or time. He has no hallucinations or delusions on generalized mental status exam. Cranial nerves 2-12 are intact. Cranial, cerebellar exam is normal. There is no Babinski or Romberg sign noted. The patient has good strength in general throughout and no focal sensory deficits anywhere throughout a general neurological exam. RECTAL: Not performed today. LABORATORY DATA: Labs in the Emergency Room showed the following blood chemistry, sodium 140, potassium 4.9, chloride of 105, bicarbonate of 25, BUN of 26, creatinine of 1.4, the anion gap is 10, the glucose is 90 and the estimated GFR is slightly low at 48. Lactic acid level was performed and this was normal at 1.8. The calcium level was 9.1. The total bilirubin was 0.3, the AST was 20 and the ALT was 26, alkaline phosphatase was 119 with an upper limit of normal at 116, the total protein was 7.5 and albumin was 3.4. Hematology showed a white blood cell count that was elevated at 18,700, hemoglobin 13.5 and hematocrit 40.5, red blood cell indices are entirely normal and the platelet count is 268,000. Mechanical differential shows that the patient had 84.4% segmented neutrophils, 7.6% lymphocytes, 7.3% monocytes, 0.5% eosinophils, 0.2% basophils and the absolute neutrophil count was 15,800. Urinalysis was performed and this was essentially normal. Blood cultures were obtained and pending at time of this dictation. The patient also had an EKG, which showed no new deficits, but tachycardia was mentioned and the chest x-ray showed mild patchy basilar and left perihilar opacities that appears slightly more conspicuous and may represent atelectasis or subtle multifocal infiltrate. ASSESSMENT AND PLAN: 1. Community-acquired pneumonia - Given this patient's advanced age and general [facility] [address] [place] [address] HISTORY AND PHYSICAL Name: SEDRICK GARVEY Room #: [facility] IN [facility].#: [id number] Admission: 12/26/18 ������������������ Attend Phys: Patrick Davison MD Discharge: ������������������ Date of : 35 Report #: [id number] immunocompromised status, we will continue him on intravenous antibiotics and aggressive nebulizer treatments. The elevated white blood cell count will need to be followed as well. 2. Dehydration - Likely this is due to occult fever, which was not necessarily present at the time of admission. 3. Hypertension - We will treat cautiously since the patient is dehydrated who will eventually need to go back on his admit medications. 4. Gastroesophageal reflux disease - This appears to be stable at the present time. 5. Dementia. The patient appears to be at stable baseline level of mental health as compared to my last visit with him in the last couple of weeks at [facility]. ��������������������������������������������� <ELECTRONICALLY SIGNED> ���������������������������������������� By: Patrick Davison MD ��������������������������������������������� 12/28/18 1021 1528 1656 Patrick Davison MD /nt
[2018-12-28] MEDS ORDERED: DOXYCYCLINE HYC50 MG PO (13:41)
[2018-12-28] MEDS ORDERED: MUCINEX DM ER1 EAC1 PO (13:43)
[2018-12-28] MEDS ORDERED: SYNTHROID 25 MCG PO (13:44)
[2018-12-28] MEDS ORDERED: PEPCID20 MG PO (13:44)
[2018-12-28 14:03] VITALS: BP 135/88
--- NOTE | 2018-12-28 15:17 | NUR ---
INITIAL ASSESSMENT/DISCHARGE NOTE: SW received high risk nursing referral due to pt being admitted from a nursing facility. Pt was admitted from [facility]. Pt is medically stable for discharge today. GREGG faxed discharge orders/summary to [facility] and spoke with Pete, who confirms they are able to accept pt back this afternoon. [facility] does not have transportation available. GREGG discussed with Director of Case Mgmt, who authorized arranging w/c van transportation through [employer]. GREGG arranged transportation for [phone]. GREGG left voice message for listed contact, Virgilio Butt ([phone]). Chart copy requested. GREGG updated nursing. No additional SW needs identified at this time, but is available to assist should needs arise.
--- NOTE | 2018-12-28 17:28 | NUR ---
PATIENT WILL BE DISCHARGED THIS TIME TO FACILITY AT THIS TIME. REPORT CALLED EARLIER TO FACILITY. HE IS ALERT TO SELF AND PLACE. CONT OF BOWEL AND BLADDER. WILL CONT TO MONITOR AND SHIRZA NEEDED.
--- NOTE | 2018-12-28 19:24 | D ---
[facility] [place] [address] DISCHARGE SUMMARY Name: MARESEDRICK Joanne Room #: 351-P [facility] IN ..#: [id number] Admission: 12/26/18 ������������������ Attend Phys: Patrick Davison MD Discharge: 12/28/18 ������������������ Date of : 35 Report #: [id number] THIS REPORT FOR: //name// CC: Patrick Davison [facility] DATE OF SERVICE: 12/28/2018 HOSPITAL COURSE: The patient is an 83-year-old white male who resides at [facility] and on the date of admission was sent to the Emergency Room because of severe hypoxia at the facility. He arrived at the hospital and was seen in the Emergency Room. His hypoxia had resolved by then, but his chest x-ray showed infiltrates. He was treated with intravenous antibiotics for pneumonia. He also had an elevated white blood cell count of 18,000 on arrival. This diminished back down to 10,000 before discharge. His hospital course was relatively unremarkable otherwise. The patient's appetite returned and he was hydrated intravenously for short period. He was completely asymptomatic by the time of discharge and is being sent home on oral doxycycline for an additional 8 days. He is also on a restricted diet, which is mechanical soft with nectar thickened liquids, so as to help him avoid recurrent aspiration problems. DISCHARGE DIAGNOSES: 1. Aspiration pneumonia. 2. Oropharyngeal dysphagia. 3. Dehydration. 4. Hypothyroidism. 5. Hypertension. 6. Gastroesophageal reflux disease. 7. Dementia. 8. Recurrent falls. 9. Osteoarthritis, multiple sites. DISCHARGE MEDICATIONS REGIMEN WILL BE FOLLOWS: Acetaminophen 650 mg p.o. q.6 hours p.r.n. pain or fever, guaifenesin ER 600 mg by mouth p.o. b.i.d., levothyroxine 50 mcg p.o. daily (note new dose). Lisinopril 10 mg p.o. daily, mirtazapine 15 mg p.o. at bedtime, Norvasc 5 mg p.o. daily, potassium chloride 20 mEq p.o. daily, doxycycline 100 mg p.o. b.i.d. x 16 doses, famotidine 20 mg by mouth twice daily. ��������������������������������������������� <ELECTRONICALLY SIGNED> ���������������������������������������� By: Patrick Davison MD ��������������������������������������������� 12/28/18 1924 1355 1711 Patrick Davison MD /nt
== END 2018-12-28 19:08 | DRG 178 ==
LOC: ER 07:25 → 3W 08:32 → EROBS 08:32 → 3W 09:09
PROVIDERS: Emergency Medicine; ADMIT Internal Medicine
DX: J69.0 Pneumonitis due to inhalation of food and vomit (principal); R65.10 Systemic inflammatory response syndrome (SIRS) of non-infectious origin without acute organ dysfunction; I10 Essential (primary) hypertension; E03.9 Hypothyroidism, unspecified; F03.90 Unspecified dementia, unspecified severity, without behavioral disturbance, psychotic disturbance, mood disturbance, and anxiety; R09.02 Hypoxemia; R13.12 Dysphagia, oropharyngeal phase; E86.0 Dehydration; K21.9 Gastro-esophageal reflux disease without esophagitis; R29.6 Repeated falls; M19.90 Unspecified osteoarthritis, unspecified site; Z79.899 Other long term (current) drug therapy; Z79.890 Hormone replacement therapy
CPT/HCPCS: 10879

== ENCOUNTER 2019-01-07 15:35 | Inpatient (IN) | payer OTHER ==
[~2019-01-07] VITALS: Ht 180.3 cm; Wt 73.9 kg
[~2019-01-07 15:35] MED LIST changes: +DOXYCYCLINE HYC50 MG PO; +LISINOPRIL10 MG PO; +MUCINEX DM ER1 EAC1 PO; +PEPCID20 MG PO; +SYNTHROID 25 MCG PO
[2019-01-07 15:54] VITALS: BP 100/55
[2019-01-07 18:13] LABS: BASOPHILS 0.7 % (0.0-2.0); EOSINOPHILS 0.7 % (0.0-3.0); HEMATOCRIT 29.1 % (42.0-52.0); HEMOGLOBIN 9.8 gm/dL (14.0-18.0); LYMPHOCYTES 10.7 % (24.0-44.0); MCH 30.7 pg (26.0-34.0); MCHC 33.6 g/dL (28.0-37.0); MCV 91.4 fL (80.0-100.0); MONOCYTES 5.8 % (1.0-8.0); PLATELET COUNT 309 thou/uL (150-400); POLYS 82.1 % (36.0-66.0); RBC 3.18 mil/uL (4.50-6.00); RDW 14.1 % (10.5-14.5); WBC 14.7 thou/uL (4.0-11.0)
[2019-01-07 18:21] LABS: ANION GAP 5 mmol/L (7-16); BUN 41 mg/dL (7-18); CALCIUM 9.1 mg/dL (8.5-10.1); CHLORIDE 108 mmol/L (98-107); CO2 26 mmol/L (21-32); CREATININE 1.4 mg/dL (0.7-1.3); GLUCOSE 113 mg/dL (74-106); POTASSIUM 4.3 mmol/L (3.5-5.1); SODIUM 139 mmol/L (136-145)
[2019-01-07 18:31] LABS: ALBUMIN 2.9 g/dL (3.4-5.0); DIRECT BILIRUBIN < 0.1 mg/dL (<0.1-0.3); SGOT 38 U/L (15-37); SGPT 67 U/L (30-65); TOTAL BILIRUBIN 0.2 mg/dL (<0.1-1.0); TOTAL PROTEIN 6.5 g/dL (6.4-8.2); TROPONIN-I <0.06 ng/mL (<0.06)
[2019-01-07] MEDS ORDERED: SYNTHROID25 MC1 PO (20:06)
[2019-01-07 21:42] LABS: APTT 23.6 Seconds (24.5-32.8); PROTIME 10.8 Seconds (9.3-11.4)
[2019-01-07 22:08] VITALS: BP 116/62
[2019-01-07 23:00] VITALS: BP 107/57
[2019-01-07 23:30] VITALS: BP 98/48
[2019-01-08] VITALS (24 sets, daily range): BP systolic 91–137; BP diastolic 42–69
[2019-01-08 00:53] LABS: HEMATOCRIT 23.7 % (42.0-52.0)
[2019-01-08 01:01] LABS: HEMOGLOBIN 7.7 gm/dL (14.0-18.0)
[2019-01-08 06:25] LABS: HEMATOCRIT 23.5 % (42.0-52.0); HEMOGLOBIN 7.6 gm/dL (14.0-18.0)
[2019-01-08 06:35] LABS: CALCIUM 7.5 mg/dL (8.5-10.1); CREATININE 1.2 mg/dL (0.7-1.3); POTASSIUM 4.1 mmol/L (3.5-5.1)
--- NOTE | 2019-01-08 08:02 | EKG ---
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1935 Requested By: Juan C Burgos Order Number: [id number] MD: Henok Barber Measurements Intervals [place] Rate: 94 P: 25 CO: 190 QRS: -13 QRSD: 82 T: 5 QT: 352 QTc: 441 Interpretive Statements Sinus rhythm Atrial premature complexes Compared to ECG 12/26/2018 07:38:43 Atrial premature complex(es) now present Sinus tachycardia no longer present Electronically Signed On 01-08-2019 8:02:48 CDT by Henok Barber [email or web address] <ELECTRONICALLY SIGNED> By: Henok Barber MD, [facility] [id number] 16 16 Henok Barber MD, [facility] /EPI
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
[2019-01-08 13:32] LABS: HEMATOCRIT 23.3 % (42.0-52.0); HEMOGLOBIN 7.7 gm/dL (14.0-18.0)
[2019-01-08 18:14] LABS: HEMOGLOBIN 7.9 gm/dL (14.0-18.0)
[2019-01-09] VITALS (7 sets, daily range): BP systolic 114–138; BP diastolic 60–84
[2019-01-09 06:31] LABS: ABSOLUTE NEUTROPHILS 7.6 thou/uL (1.4-8.2); BASOPHILS 0.4 % (0.0-2.0); HEMATOCRIT 24.7 % (42.0-52.0); HEMOGLOBIN 8.4 gm/dL (14.0-18.0); LYMPHOCYTES 14.2 % (24.0-44.0); MCH 31.3 pg (26.0-34.0); MCHC 34.1 g/dL (28.0-37.0); MCV 91.8 fL (80.0-100.0); MONOCYTES 8.4 % (1.0-8.0); PLATELET COUNT 273 thou/uL (150-400); RBC 2.69 mil/uL (4.50-6.00); RDW 13.9 % (10.5-14.5)
[2019-01-09 06:40] LABS: CALCIUM 8.2 mg/dL (8.5-10.1); CREATININE 1.1 mg/dL (0.7-1.3); POTASSIUM 4.1 mmol/L (3.5-5.1)
[2019-01-10 03:52] VITALS: BP 137/81
[2019-01-10 04:32] LABS: HEMOGLOBIN 8.7 gm/dL (14.0-18.0); MCHC 33.6 g/dL (28.0-37.0); MCV 92.3 fL (80.0-100.0); RBC 2.82 mil/uL (4.50-6.00); RDW 13.7 % (10.5-14.5); WBC 11.6 thou/uL (4.0-11.0)
[2019-01-10 04:43] LABS: CALCIUM 8.2 mg/dL (8.5-10.1); CREATININE 1.2 mg/dL (0.7-1.3); POTASSIUM 3.8 mmol/L (3.5-5.1)
[2019-01-10 07:27] VITALS: BP 133/69
--- NOTE | 2019-01-10 10:55 | HC ---
[facility] [place] [address] CONSULTATION Name: SEDRICK GRAVEY Room #: 361-P [facility] IN .R.#: [id number] Admission: 01/07/19 Attend Phys: Patrick Davison MD Discharge: Date of : 35 Report #: [id number] THIS REPORT FOR: //name// CC: Patrick Davison DATE OF SERVICE: 01/09/2019 BEHAVIORAL STATUS EXAM AGE: 83. ATTENDING PHYSICIAN: Patrick Davison M.D. [employer] TRUCK DRIVER: Brendan Knight, PhD CLINICAL PRESENTATION: The patient is an 83-year-old male admitted to [facility] for evaluation and treatment of acute gastrointestinal hemorrhage. His diagnosis on admission to the hospital included hypotension secondary to acute bleeding, acute blood loss anemia, leukocytosis, Waddell's esophagus, history of essential hypertension and senile dementia, probably of moderate severity. A complete description of his medical condition and history can be found in his medical record. Neuropsychological consultation was requested to provide assistance in the assessment of cognitive and emotional status and provide assistance in the determination of mental competency. Prior to this most recent admission, the patient was living at the [facility]. 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 The patient is a from the [employer] having served in [employer]. He reports having had 3 children. He is not able to provide any specific history because of confusion and poor orientation. He frequently repeated "I am too mean", "I do not negotiate", "they say I am too mean". Multiple repetitions were made of the same statements. Patient appeared irritable with his statements suggesting aggressive behavior regarding compliance to instructions. He was in restraints at the time of my interview. TECHNIQUES UTILIZED: Clinical interview, review of medical records, staff consultation and behavioral observation, mini mental status exam 2 standard version. EXAMINATION FINDINGS: The patient was alert and partially cooperative during the interview. He was not able to indicate the reason for his hospitalization and could not indicate current symptoms or problems that he is experiencing. The patient did not recall his prior living arrangement. As indicated earlier he frequently repeated the same statements regarding reluctance to participate in therapies and accept treatment. His mood was irritabile and marked by [facility] [address] [place] [address] CONSULTATION Name: MARESEDRICK Room #: 361-P [facility] IN ..#: [id number] Admission: 01/07/19 Attend Phys: Patrick Davison MD Discharge: Date of : 35 Report #: [id number] severely impaired insight into the purpose of his hospitalization. The patient was 16 on the MMSE 2 brief version. He required multiple attempts at registration for encoding 3 items for later recall. Upon multiple repetitions, he was only able to eventually manage encoding of one item initially. He was 0/5 for orientation to time, 0/[address] He was 0/3 for immediate recall of 3 items after a brief time delay and distraction. Variability in comprehension likely from perseveration is suggested. His performance on the MMSE 2 standard version suggests a severe impairment. He was unable to complete serial 7's. Naming was 2/2. Decreased auditory comprehension, inability to follow the written commands are noted. He does appear able to follow 1-step verbal commands. Frequent repetition and perseverative responses are noted throughout the interview. He presents with poor orientation, severe deficits in attention/concentration, auditory comprehension and executive functioning are suggested. However, he was alert during the assessment. This type of presentation suggests a neurogeneritive disorder with Alzheimer type features. Additonally, periods of delirium may also be contributing. DIAGNOSTIC IMPRESSION: Delirium, mixed level of activity -- acute. 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 RECOMMENDATIONS: The patient is not mentally competent at this time. He requires assistance with medical, financial and nutritional decision making. While delirium may be contributing to his overall diminished functioniong, the the severity of the neurodegenerative disorder is very likely to be moderate to severe. Psychiatric consultation to assist with the selection of medication for behavior and agitation. Following resoluation of his acute medical condition, a followup Neuropsych assessment may be of benefit to clarify the severity of his cognition. However, at this time, he requires 24-hour care that includes assistance with activities of daily living. [address] [address] CONSULTATION Name: SEDRICK GARVEY Room #: 361-P [facility] IN M.R.#: [id number] Admission: 01/07/19 Attend Phys: Patrick Davison MD Discharge: Date of : 35 Report #: [id number] Thank you very much for allowing me to provide the consultation on this patient. <ELECTRONICALLY SIGNED> By: Brendan Knight, PhD 01/10/19 1055 [id number] Brendan Knight, PhD /nt
[2019-01-10 11:34] VITALS: BP 135/77
[2019-01-10 15:32] VITALS: BP 134/76
[2019-01-10 20:15] VITALS: BP 139/72
[2019-01-11 04:00] VITALS: BP 123/72
[2019-01-11 05:20] LABS: HEMOGLOBIN 9.5 gm/dL (14.0-18.0); MCH 30.9 pg (26.0-34.0); MCV 90.8 fL (80.0-100.0); PLATELET COUNT 331 thou/uL (150-400); RBC 3.08 mil/uL (4.50-6.00); RDW 13.7 % (10.5-14.5); WBC 9.8 thou/uL (4.0-11.0)
[2019-01-11 05:31] LABS: CALCIUM 8.3 mg/dL (8.5-10.1); CREATININE 1.1 mg/dL (0.7-1.3); POTASSIUM 3.7 mmol/L (3.5-5.1)
[2019-01-11 06:25] LABS: ANISOCYTOSIS 1+; PLATELET ESTIMATE NORMAL; POIKILOCYTOSIS 1+; POLYCHROMASIA 1+
[2019-01-11 07:25] VITALS: BP 129/68
[2019-01-11 11:32] VITALS: BP 97/58
--- NOTE | 2019-01-11 16:06 | PATH ---
[facility] [address] [place] [address] PATHOLOGY RPT PROCEDURE Name: SEDRICK GARVEY Room #: 361-P [facility] IN M.R.#: [id number] Admission: 01/07/19 Date of : 35 Discharge: Report #: [id number] Path Case #: [id number] [facility] Accession Number: [id number] . 01 Material submitted: . esophagus - ESOPHAGUS ULCER 30CM . 01 Clinical history: . Pre-OP DX: Upper GI bleed Post-OP DX: Esophageal ulcer . 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 - Background of Waddell's metaplasia with focal high-grade dysplasia present. (IUV:mortgage loan computation clerk; 01/11/2019) MBR/01/11/2019 . 02 Comment: Co-review: Dr. Dre Mullins. . Findings of this case are conveyed to Dr. Fountain at approximately 11:42 a.m. on 01/11/19. . No additional markers or immunohistochemical stains are ordered at this point in order to save tissue for possible testing for markers if needed. . (IUV:mortgage loan computation clerk; 01/11/2019) . 02 Electronically signed: . Brittney Logan MD, Pathologist NPI- [id number] . 01 Gross description: . Received in formalin labeled "Sedrick Garvey, esophagus ulcer at 30 cm," are 6 segments of lam soft tissue measuring 1.5 x 0.9 x 0.3 cm in aggregate dimensions and ranging from 0.1 to 0.4 cm in maximum dimension. The specimen is submitted entirely in cassette A1. (TSD; 01/08/2019) TOB/TOB . 02 Pathologist provided ICD-10: C15.9, D13.0 . 02 [facility] [place] [address] PATHOLOGY RPT PROCEDURE Name: SEDRICK GARVEY O Room #: 361-P ADM IN M.R.#: [id number] Admission: 01/07/19 Date of : 35 Discharge: Report #: [id number] Path Case #: [id number] Specimen Comment: A courtesy copy of this report has been sent to Specimen Comment: [phone], . Specimen Comment: Report sent to / DR OTTO Performed at: [address], [place], [place] [id number] MD Tomas Peterson MD Phone: [phone] Performed at: [address] [id number] MD Brittney Logan MD Phone: [phone]
[2019-01-11 16:09] VITALS: BP 94/62
[2019-01-11 19:33] VITALS: BP 123/65
[2019-01-12 04:00] VITALS: BP 109/60
[2019-01-12 07:13] VITALS: BP 102/57
[2019-01-12] MEDS ORDERED: CARAFATE 11 GM/10 M1 PO (11:15)
[2019-01-12 11:53] VITALS: BP 111/58
[2019-01-12 16:05] VITALS: BP 106/62
[2019-01-12 20:04] VITALS: BP 106/59
[2019-01-13 04:48] VITALS: BP 122/74
--- NOTE | 2019-01-13 07:09 | HC ---
[facility] [place] [address] CONSULTATION Name: SEDRICK GARVEY Room #: 361-P [facility] IN M.R.#: [id number] Admission: 01/07/19 Attend Phys: Yasmin Davison MD Discharge: Date of : 35 Report #: [id number] THIS REPORT FOR: //name// CC: Rickey Davison MD REQUESTING PHYSICIAN: Yasmin Davison MD REASON FOR CONSULTATION: Esophageal cancer, adenocarcinoma, signet ring. HISTORY OF PRESENT ILLNESS: The patient is an 83-year-old gentleman who lives at an assisted living facility who was brought in because of weakness and fatigue and also was found to be anemic. 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 CAT scan does not show any distal disease. The patient is thought to be mentally incompetent and also has dementia and does not appear to understand much of what is going on around him, so I did not go into details with him. Note that I did talk with Snow Pablito, his DPOA for medical issues, at phone number [phone]. I did not talk with Akash Ibanez at [phone], his DPOA for financial. Snow is a daughter of his . Akash is the granddaughter of his . I also did talk with the patient's son, Virgilio, though he has more of an emotional interest and not a financial or healthcare interest as far as his DPOA. I explained to them that even though the cancer appears to be localized to treat this aggressively with any benefit, he would either need to consider radiation therapy or chemotherapy and radiation therapy or surgery are all three and above. I do not think the patient would be able to tolerate or understand why he is undergoing these therapies and I would suggest hospice and palliative care. After talk with Snow and also Virgilio, they both seem to be in agreement with this direction of care, though they are still taking this all in to understand. The patient at this time is not aware of any complaints and denies any headache, fevers, chills, nausea, vomiting, shortness of air, etc., though I do not think he is really aware of himself that well. PAST MEDICAL HISTORY: From the chart is notable for the esophageal cancer, adenocarcinoma, poorly differentiated with signet ring features. Also, history of anemia. Also, dementia. He had been seen by Brendan Knight in psychology. Also, history of hypertension, hypothyroidism, dysphagia. 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 He cannot tell me where he grew up. He does remember having a white dog earlier, but he does not know the name of the dog. MEDICATIONS: His medications at this time in the hospital include mirtazapine 15 mg at bedtime, pantoprazole 40 b.i.d. IV, sucralfate 1 gram before meals and at bedtime p.o., levothyroxine 25 mcg daily, Tylenol 650 mg q. 6 hours p.r.n. [address] [address] CONSULTATION Name: MARESEDRICK Room #: 361-P [facility] IN M.R.#: [id number] Admission: 01/07/19 Attend Phys: Yasmin Davison MD Discharge: Date of : 35 Report #: [id number] p.o. PHYSICAL EXAMINATION: VITAL SIGNS: Height is 5 feet 11 inches, which is 180.3 cm. Weight is 162.9 pounds or 73.9 kilograms. Blood pressure is 102/57, O2 sat 99%, pulse 87, respirations 19, temperature is afebrile at 97.9. FACE: Symmetrical. MOOD: He is pleasant at least at this time, though there is report of him being a little bit contrary. NEUROLOGIC: He is moving extremities isometric, but there is a concern about cognitive impairment and probable incompetency. LUNGS: Appear mostly clear at this time without definite rhonchi, rales or wheezes. LYMPHATICS: No enlarged lymph nodes in the supraclavicular, cervical, axillary or inguinal region. ABDOMEN: Scaphoid, no masses, nontender. EXTREMITIES: Without clubbing or cyanosis. LABORATORY REVIEW: Notable for BUN 11, creatinine 1.1. Transaminases recently normal. Albumin 2.9. White count 9.8, hemoglobin 9.5, MCV 90.8, platelets 331. Differential fairly normal. TSH earlier in December was 6.067. RADIOLOGIC STUDIES: Include a CT chest that showed diffusely distended esophagus filled with fluid. Large hiatal hernia. Small bilateral pleural effusions. CT of the abdomen and pelvis showed diverticulosis of the sigmoid colon, enhancement of gastric and esophageal mucosa concerning for gastritis. ASSESSMENT AND PLAN: 1. Adenocarcinoma of the esophagus at 30 cm. Even though this appears to be localized, I would be suspicious that if we did EUS or PET scan, we might find other disease. Even if it is localized, this would require therapy with radiation therapy or chemotherapy or chemotherapy and radiation therapy or surgery with all the above. I think given the patient's mental capacity and lack of memory and this overall situation, I think hospice with palliative care would be the most kind thing to do. I also do not think we would gain meaningful benefit from being aggressive with him and would probably cause him to have complications, stop therapy and sooner. I discussed this with his DPOA for medical, Snow Kenney and also his son, Virgilio. They both seem to lean towards the direction of palliative care and hospice, but again I just told them this information for the first time this morning about an hour ago. I told them that may be hearing from the social work supervisor about arranging plans for discharge, sounds like the patient had been at an assisted living, would most likely need to go to a skilled unit and I would suggest involving hospice. 2. Mild dysphagia. Continue to use thin liquids. 3. Dementia as above, may need to repeat issues and at this time did not go into great detail about his diagnosis. [address] [address] CONSULTATION Name: SEDRICK GARVEY Room #: 361-P [facility] IN M.R.#: [id number] Admission: 01/07/19 Attend Phys: Yasmin Davison MD Discharge: Date of : 35 Report #: [id number] 4. Hypertension. Medications per others as needed. 5. Anemia, not low enough to transfuse at this time. 6. Hypothyroid, replace. 7. Esophageal ulceration. Continue PPI. We will be available if questions arise. <ELECTRONICALLY SIGNED> By: Kenny Trivedi MD 01/13/19 [id number] MD rena Henry
[2019-01-13 11:20] VITALS: BP 107/62
[2019-01-13 19:40] VITALS: BP 110/61
[2019-01-14 04:30] VITALS: BP 123/71
[2019-01-14 07:25] VITALS: BP 130/64
[2019-01-14 11:31] VITALS: BP 104/57
[2019-01-14 15:30] VITALS: BP 122/64
[2019-01-14 20:10] VITALS: BP 115/72
[2019-01-15 04:51] VITALS: BP 138/77
[2019-01-15 07:43] VITALS: BP 139/61
[2019-01-15 11:46] VITALS: BP 124/56
[2019-01-15 15:31] VITALS: BP 116/68
[2019-01-15 20:20] VITALS: BP 138/73
[2019-01-16 03:45] VITALS: BP 130/81
[2019-01-16 07:23] VITALS: BP 151/62
[2019-01-16 14:54] VITALS: BP 125/67
[2019-01-16 19:09] VITALS: BP 148/61
[2019-01-17 04:57] VITALS: BP 157/88
[2019-01-17 08:04] VITALS: BP 144/75
[2019-01-17 19:13] VITALS: BP 134/85
[2019-01-18 03:27] VITALS: BP 139/78
[2019-01-18 08:24] VITALS: BP 144/80
[2019-01-18 15:01] VITALS: BP 122/63
[2019-01-18 20:16] VITALS: BP 125/79
[2019-01-19 04:07] VITALS: BP 124/85
[2019-01-19 08:09] VITALS: BP 145/89
[2019-01-19 19:35] VITALS: BP 136/70
[2019-01-20 06:11] VITALS: BP 126/61
[2019-01-20 07:30] VITALS: BP 140/82
--- NOTE | 2019-01-20 08:08 | HC ---
[facility] [place] [address] CONSULTATION Name: SEDRICK GARVEY Joanne Room #: 419-P [facility] IN ..#: [id number] Admission: 01/07/19 Attend Phys: Patrick Davison MD Discharge: Date of : 35 Report #: [id number] THIS REPORT FOR: //name// CC: Patrick Davison MD DATE OF SERVICE: 01/08/2019 HISTORY OF PRESENT ILLNESS: The patient is an 83-year-old male with a history of dementia, residing in a nursing facility, began having complaints of dizziness and possible aspiration. He was noted to be hypotensive. On admission to the ER, he was noted to have heme-positive stools as well as significant decrease from his recent hemoglobin. I am unable to get any significant history from the patient. His admit hemoglobin was 9.8. He has dropped to 7.6. His hemoglobin was 13.7 on 12/28/2018. He has now been placed on PPI therapy. In reviewing his history, he underwent an upper endoscopy by my partner January of last year and was noted to have 3 large esophageal ulcers, one with stigmata of recent bleeding. He has been on Pepcid, but not PPI therapy, has not been on any anticoagulation therapy apparently. He also underwent a flexible sigmoidoscopy by myself showing acute proctitis with some bleeding associated with it. The biopsy showed active inflammation, but nonspecific. PAST MEDICAL HISTORY: Esophageal ulcers, history of proctitis, dementia, hypertension, hypothyroidism, previous history of small-bowel obstruction due to adhesions. MEDICATIONS ON ADMISSION: Pepcid 20 mg b.i.d., Synthroid, mirtazapine, potassium chloride, amlodipine, and lisinopril. REVIEW OF SYSTEMS: Unobtainable secondary to mental status. FAMILY HISTORY: Unknown. ALLERGIES: No known drug allergies. SOCIAL HISTORY: Apparently, no history of smoking or alcohol. PHYSICAL EXAMINATION: VITAL SIGNS: Temperature is 98.0, pulse 77, blood pressure 110/54, respiratory rate is 12. GENERAL: He is able to converse with you; however, he is confused. He is not answering questions normally. He is in no acute distress. HEENT: Sclerae nonicteric. Oropharynx clear. NECK: Supple. CARDIOVASCULAR: Regular rate and rhythm. CHEST: Clear to auscultation bilaterally. [facility] [address] [place] [address] CONSULTATION Name: SEDRICK GARVEY Room #: 419-P [facility] IN [facility].#: [id number] Admission: 01/07/19 Attend Phys: Patrick Davison MD Discharge: Date of : 35 Report #: [id number] ABDOMEN: Soft. He is nontender, nondistended, normoactive bowel sounds. EXTREMITIES: No cyanosis, clubbing or edema. LABORATORY DATA: Sodium 142, potassium 4.1, chloride 113, bicarbonate 21, BUN 33, creatinine is 1.2, glucose 90. AST 38, total bilirubin 0.2, calcium 7.5, alkaline phosphatase 98, ALT 67, total protein 6.5, albumin 2.9. INR 1.0. WBC is 14.7, hemoglobin 7.6, MCV 91.4, platelet count is 309. Chest x-ray, unchanged hiatal hernia. Swallow study, penetration with thin and nectar consistency barium. ASSESSMENT AND PLAN: Anemia, drop in hemoglobin, Hemoccult positive stools. Unable to obtain history from the patient due to his dementia, previous history of gastric ulcers. Agree with proceeding with upper endoscopy today for further evaluation. Continue PPI therapy, continue to monitor hemoglobin closely. I will make further recommendations after endoscopy. Thank you for allowing me to participate in his care. <ELECTRONICALLY SIGNED> By: Rickey Fountain MD 01/20/19 0808 [id number] Rickey Fountain MD /nt
--- NOTE | 2019-01-20 08:08 | P ---
[facility] [place] [address] PROCEDURE REPORT Name: SEDRICK GARVEY Joanne Room #: 419-P [facility] IN ..#: [id number] Admission: 01/07/19 Attend Phys: Patrick Davison MD Discharge: Date of : 35 Report #: [id number] THIS REPORT FOR: //name// CC: Patrick Davison MD DATE OF SERVICE: 01/08/2019 PROCEDURE PERFORMED: Upper endoscopy with biopsies. HISTORY OF PRESENT ILLNESS: The patient is an 83-year-old male with a history of dementia, anemia with recent drop in hemoglobin. Hemoccult positive stool on admission in the ER. He had a previous history of esophageal ulcerations noted last year on upper endoscopy. 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 The patient has been on Pepcid b.i.d., unable to get any history from the patient due to his mental status. Plan is for EGD. DESCRIPTION OF PROCEDURE: The risks and benefits of the procedure were explained to the patient's guardian or DPOA, those risks including but not limited to bleeding, perforation, the risk of sedation. They understood these risks and gave informed consent. Sedation was given using propofol per anesthesia. Next, using a standard Olympus upper endoscope, the scope was placed in the patient's mouth and advanced under direct vision through the esophagus, stomach and into the second portion of the duodenum. The upper esophagus was normal; however, in the mid to distal esophagus, there was an area of significant inflammation, multiple ulcerations in this area as well as narrowing and possible mass. I did obtain several biopsies in this area. Distal to this area, it appears to be fairly normal GE junction, although the patient does have a history of Waddell. It was difficult to tell if this is Waddell tissue near the GE junction, but the inflammation does not involve the GE junction. Upon entering the stomach, hiatal hernia was noted. Overall, the gastric mucosa was normal. There was no evidence of blood throughout the stomach or the duodenum today. The pylorus was normal and patent. The duodenal bulb, first and second portion were all normal. The scope was then withdrawn and the procedure terminated. The patient tolerated the procedure well. IMPRESSION: 1. Esophageal ulcerations with narrowing and possible mass. Biopsies obtained. No active bleeding; however, the area was friable, could have caused recent bleeding and anemia. 2. Hiatal hernia. 3. Otherwise normal upper endoscopy. RECOMMENDATIONS: 1. Await biopsy results. 2. Continue PPI therapy. [address] [address] PROCEDURE REPORT Name: SEDRICK GARVEY Room #: 419-P [facility] IN .R.#: [id number] Admission: 01/07/19 Attend Phys: Patrick Davison MD Discharge: Date of : 35 Report #: [id number] 3. We will add Carafate. 4. Continue to monitor hemoglobin. Thank you for allowing me to participate in his care. <ELECTRONICALLY SIGNED> By: Rickey Fountain MD 01/20/19 0808 [id number] Rickey Fountain MD /nt
[2019-01-20 16:22] VITALS: BP 119/68
[2019-01-20 19:24] VITALS: BP 132/89
[2019-01-21 03:39] VITALS: BP 142/87
[2019-01-21 07:15] VITALS: BP 140/86
[2019-01-21] MEDS ORDERED: PROTONIX40 M1 PO (15:36)
[2019-01-21 15:40] VITALS: BP 133/84
[2019-01-21] MEDS ORDERED: CARAFATE 11 GM/10 M1 PO (16:13)
== END 2019-01-21 17:12 | disposition hospice, inpatient (51) | DRG 374 ==
LOC: ER 15:35 → ICU 18:51 → EROBS 18:51 → ICU 22:09 → 3W 01-09 01:19 → 4E 01-15 20:04
PROVIDERS: Emergency Medicine; Internal Medicine; ADMIT Internal Medicine
PROC: 0DB58ZX Excision of Esophagus, Via Natural or Artificial Opening Endoscopic, Diagnostic (ICD-10-PCS; principal; 2019-01-08)
DX: C15.9 Malignant neoplasm of esophagus, unspecified (principal); K22.11 Ulcer of esophagus with bleeding; D62 Acute posthemorrhagic anemia; F02.81 Dementia in other diseases classified elsewhere, unspecified severity, with behavioral disturbance; I95.9 Hypotension, unspecified; E03.9 Hypothyroidism, unspecified; I10 Essential (primary) hypertension; R41.0 Disorientation, unspecified; F01.50 Vascular dementia, unspecified severity, without behavioral disturbance, psychotic disturbance, mood disturbance, and anxiety; R13.10 Dysphagia, unspecified; D72.829 Elevated white blood cell count, unspecified; Z51.5 Encounter for palliative care; K44.9 Diaphragmatic hernia without obstruction or gangrene; G30.9 Alzheimer's disease, unspecified; Z79.899 Other long term (current) drug therapy
CPT/HCPCS: 10078; 10084; 10183; 10779; 10879; 62110; 62900; 70005